=== PATIENT | male | born 1985 | race American Indian/Alaskan Native ===

== ENCOUNTER 2020-04-19 20:38 | Emergency (ER) | payer BC ==
[2020-04-19] MEDS ORDERED: Lisinopril 10 MG Tab PO ONE (20:50)
[2020-04-19 21:28] LABS: ANION GAP 12.7 mEq/L (7-13); CHLORIDE,CL 103 mmol/L (98-107); SODIUM,NA 140 mmol/L (136-145)
--- NOTE | 2020-04-19 21:34 | CR ---
PROCEDURE INFORMATION: Exam: XR Chest, 2 Views Exam date and time: 04/19/2020 9:03 PM Age: 34 years old Clinical indication: Shortness of breath; Chest pain; Additional info: SOB at times, chest pains, HTN TECHNIQUE: Imaging protocol: XR of the chest Views: 2 views. COMPARISON: No relevant prior studies available. FINDINGS: Lungs: Unremarkable. No consolidation. Pleural space: Unremarkable. No pleural effusion. No pneumothorax. Heart/Mediastinum: Unremarkable. No cardiomegaly. Bones/joints: Age appropriate. IMPRESSION: No active disease of the chest.
--- NOTE | 2020-04-19 21:44 | EDM.PDOC ---
<Aron Singh - Last Filed: 04/19/20 21:54> ED HPI GENERAL MEDICAL PROBLEM - General Chief Complaint: Chest Pain Stated Complaint: CHEST TIGHTNING, ANXIETY, BLOOD PRESSURE Time Seen by Provider: 04/19/20 21:30 Source of Information: Reports: Patient History Limitations: Reports: No Limitations - History of Present Illness INITIAL COMMENTS - FREE TEXT/NARRATIVE: Patient is a pleasant 34 year old male here today with chest pain. He has had this for 2-3 weeks now. He has an associated anxious feeling. He recently moved here from [place], although he used to work here. He had a high stress job here previously then moved to a lower stress job in [place]. 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 Patient has associated tension in back and front of head. He also has decreased energy. No history of diabetes. Past medical history of hypertension, for which he was taking lisinopril but does not have any more because he moved. No known allergies and a non-smoker. Chest Pain Score (Numeric/FACES): 4 - Related Data Allergies Allergy/AdvReac Type Severity Reaction Status Date / Time No Known Allergies Allergy Verified 04/19/20 20:59 Home Meds: Home Meds lisinopriL [Lisinopril] 10 mg PO DAILY 04/19/20 [History] Past Medical History Cardiovascular History: Reports: Hypertension Psychiatric History: Reports: Anxiety - Past Surgical History Musculoskeletal Surgical History: Reports: Other (See Below) Other Musculoskeletal Surgeries/Procedures:: lt ankle plates post fx Social & Family History - Family History Family Medical History: Noncontributory - Tobacco Use Smoking Status *Q: Never Smoker Second Hand Smoke Exposure: No - Caffeine Use Caffeine Use: Reports: None - Recreational Drug Use Recreational Drug Use: No ED ROS GENERAL - Review of Systems Review Of Systems: Comprehensive ROS is negative, except as noted in HPI. ED EXAM, GENERAL - Physical Exam Exam: See Below Exam Limited By: No Limitations General Appearance: Alert, No Apparent Distress Eye Exam: Bilateral Eye: Normal Inspection Ears: Normal External Exam Nose: Normal Inspection Throat/Mouth: Normal Inspection, Normal Lips, Normal Teeth Head: Normocephalic Neck: Normal Inspection Respiratory/Chest: No Respiratory Distress, Lungs Clear, Normal Breath Sounds, Other (No reproduction of pain from palpation or stressing the chest in an A/P direction or lateral direction. ) Cardiovascular: Normal Peripheral Pulses, Regular Rate, Rhythm, No Murmur Peripheral Pulses: 2+: Radial (L), Radial (R) GI/Abdominal: Soft, Other (large habitus) (Male) Exam: Deferred Rectal (Males) Exam: Deferred Back Exam: Normal Inspection Extremities: Normal Inspection Neurological: Alert, Oriented, Normal Cognition Psychiatric: Normal Affect, Normal Mood Skin Exam: Warm, Dry, Intact EKG INTERPRETATION Rhythm: NSR [place]: Normal P-Wave: Present QRS: Normal Course - Re-Assessments/Exams Free Text/Narrative Re-Assessment/Exam: 04/19/20 21:51 Patient's EKG and labs look good. Given history and ER findings, I suspect this is anxiety. There is an acute aspect to this, as he just recently moved here and took on a lot of extra responsibility. It may be culp to see a PCP and discuss this, and consider medication once past the acute phase of the changes in his life. Patient has had HTN here, and got one dose of his home medication (lisinopril 10 mg). He may need a second agent in the clinic. He should take BP readings twice a week for the next 6 - 8 weeks to see where his pressures are at. Departure - Departure Time of Disposition: 22:10 Disposition: Home, Self-Care 01 Condition: Good Clinical Impression: Essential hypertension, Stress and adjustment reaction Instructions: Mindfulness-Based Stress Reduction, Preventing Hypertension Forms: ED Department Discharge Additional Instructions: Refill lisinopril and take daily. Take 2 blood pressure readings and record these every week for the next 6-8 weeks. A second agent is sometimes necessary and this information would be helpful. See a primary care provider within the next 3 months. Consider speaking to primary care provider about both hypertension and anxiety, if the anxiety continues. Sepsis Event Note (ED) - Evaluation Sepsis Screening Result: No Definite Risk <Brissa Prieto - Last Filed: 04/19/20 22:05> Course - Vital Signs Last Recorded V/S: Last Vital Signs Temp 98.2 F 04/19/20 21:47 Pulse 80 04/19/20 21:47 Resp 18 04/19/20 20:45 BP 155/95 H 04/19/20 21:47 Pulse Ox 98 04/19/20 21:47 - Orders/Labs/Meds Orders: Active Orders 24 hr Category Date Time Status EKG Documentation Completion [RC] STAT Care 04/19/20 20:51 Active Labs: Laboratory Tests 04/19/20 04/19/20 Range/Units 21:00 21:00 WBC 6.3 (5.0-10.0) 10^3/uL RBC 5.28 (4.6-6.2) 10^6/uL Hgb 15.8 (14.0-18.0) g/dL Hct 46.7 (40.0-54.0) % MCV 88.4 (80-100) fL MCH 29.9 (27.0-34.0) pg MCHC 33.8 (33.0-35.0) g/dL Plt Count 250 (150-450) 10^3/uL Neut % (Auto) 65.0 (42.2-75.2) % Lymph % (Auto) 26.8 (20.5-50.1) % [place] % (Auto) 6.7 (2-8) % Eos % (Auto) 1.3 (1.0-3.0) % Baso % (Auto) 0.2 (0.0-1.0) % Sodium 140 (136-145) mmol/L Potassium 3.7 (3.5-5.1) mmol/L Chloride 103 (98-107) mmol/L Carbon Dioxide 28 (21-32) mmol/L Anion Gap 12.7 (7-13) mEq/L BUN 11 (7-18) mg/dL Creatinine 0.76 (0.70-1.30) mg/dL Est Cr Clr Drug Dosing 169.73 mL/min Estimated GFR (MDRD) > 60 BUN/Creatinine Ratio 14.5 (No establ ref range) Glucose 93 (74-99) mg/dL Calcium 8.9 (8.5-10.1) mg/dL Total Bilirubin 1.0 (0.2-1.0) mg/dL AST 34 (15-37) U/L ALT 62 (16-63) U/L Alkaline Phosphatase 72 (46-116) U/L Troponin I < 0.017 (0.000-0.056) ng/mL Total Protein 8.1 (6.4-8.2) g/dL Albumin 4.1 (3.4-5.0) g/dL Globulin 4.0 Albumin/Globulin Ratio 1.0 Meds: Medications Discontinued Medications Generic Name Dose Route Start Last Admin Trade Name Jeramie PRN Reason Stop Dose Admin Lisinopril 10 mg 04/19/20 20:50 04/19/20 20:58 Prinivil PO 04/19/20 20:51 10 mg ONETIME ONE Administration - Re-Assessments/Exams Free Text/Narrative Re-Assessment/Exam: 04/19/20 22:05 I saw and evaluated the patient. Discussed with resident and agree with residents findings and plan as documented in the residents note. Sepsis Event Note (ED) - Focused Exam Vital Signs: Vital Signs Temp Pulse Resp BP BP Pulse Ox 04/19/20 21:47 98.2 F 80 155/95 H 98 04/19/20 20:58 178/105 H 04/19/20 20:45 98.6 F 81 18 178/105 H 99 - My Orders Last 24 Hours: My Active Orders 04/19/20 20:51 EKG Documentation Completion [RC] STAT - Assessment/Plan Last 24 Hours: My Active Orders 04/19/20 20:51 EKG Documentation Completion [RC] STAT
== END 2020-04-19 22:11 | disposition home or self-care (01) ==
LOC: DL.ED 20:38
DX: F43.20 Adjustment disorder, unspecified (principal); I10 Essential (primary) hypertension; Z79.899 Other long term (current) drug therapy
CPT/HCPCS: 36415; 71046; 80053; 84484; 85025; 93005; 99285; A9270

== ENCOUNTER 2022-07-10 09:32 | Emergency (ER) | payer BC ==
[2022-07-10] MEDS ORDERED: Ketorolac 30 MG/ML SDV IM ONE (09:50)
[2022-07-10 10:25] LABS: CHLORIDE,CL 100 mmol/L (98-107); SODIUM,NA 138 mmol/L (136-145)
[2022-07-10 10:28] LABS: ESTIMATED GFR 112 mL/min (>=60)
== END 2022-07-10 10:51 | disposition home or self-care (01) ==
LOC: DL.ED 09:32
DX: R07.81 Pleurodynia (principal); I10 Essential (primary) hypertension; E66.9 Obesity, unspecified; Z68.43 Body mass index [BMI] 50.0-59.9, adult; Z79.899 Other long term (current) drug therapy
CPT/HCPCS: 36415; 71046; 80053; 85025; 86140; 96372; 99283; J1885